=== PATIENT | female | born 1995 | race Caucasian/White ===

== ENCOUNTER 2016-04-21 05:27 | Emergency (ER) | payer BC ==
[2016-04-21] MEDS ORDERED: HYDROmorphONE/DILAUDID 1 MG/ML SYR IVP ONE (05:49)
[2016-04-21] MEDS ORDERED: NS 1,000 ML IV ONE (05:49)
[2016-04-21] MEDS ORDERED: ONDANSETRON 4 MG/2 ML VIAL IVP ONE (05:49)
--- NOTE | 2016-04-21 05:51 | EDPHY ---
H & P Stated Complaint: c/o L abd pain beginning approx 0100 am, recent dx of mono Time Seen by Provider: 04/21/16 05:43 HPI/ROS: CHIEF COMPLAINT: Abdominal pain HISTORY OF PRESENT ILLNESS: Patient is a 20-year-old female who presents to the emergency department complaining of left upper quadrant abdominal pain. She is diagnosed mononucleosis 2 weeks ago. She continues to have fatigue and is having increasing left upper quadrant pain. No trauma. Her sore throat runny nose and fever have resolved. No difficulty breathing, she denies risk of . No vaginal bleeding or discharge. No urinary symptoms. REVIEW OF SYSTEMS: Constitutional: denies: chills, fever, recent illness, recent injury EENTM: denies: blurred vision, double vision, nose congestion Respiratory: denies: cough, shortness of breath Cardiac: denies: chest pain, irregular heart rate, lightheadedness, palpitations Gastrointestinal/Abdominal: See HPI Genitourinary: denies: dysuria, frequency, hematuria, pain Musculoskeletal: denies: joint pain, muscle pain Skin: denies: lesions, rash, jaundice, bruising Neurological: denies: headache, numbness, paresthesia, tingling, dizziness, weakness Hematologic/Lymphatic: denies: blood clots, easy bleeding, easy bruising Immunologic/allergic: denies: HIV/AIDS, transplant EXAM: GENERAL: Well-appearing, well-nourished and in no acute distress. HEAD: Atraumatic, normocephalic. EYES: Pupils equal round and reactive to light, extraocular movements intact, sclera anicteric, conjunctiva are normal. ENT: TMs normal, nares patent, oropharynx clear without exudates. Moist mucous membranes. NECK: Normal range of motion, supple without lymphadenopathy or JVD. LUNGS: Breath sounds clear to auscultation bilaterally and equal. No wheezes rales or rhonchi. HEART: Regular rate and rhythm without murmurs, rubs or gallops. ABDOMEN: Splenomegaly, mild left upper quadrant tenderness. No rebound or guarding. BACK: No CVA tenderness, no spinal tenderness, step-offs or deformities EXTREMITIES: Normal range of motion, no pitting or edema. No clubbing or cyanosis. NEUROLOGICAL: Cranial nerves II through XII grossly intact. Normal speech, normal gait. 5/5 strength, normal movement in all extremities, normal sensation PSYCH: Normal mood, normal affect. SKIN: Warm, dry, normal turgor, no visible rashes or lesions. Source: Patient Exam Limitations: No limitations - Medical/Surgical History Hx Asthma: No Hx Chronic Respiratory Disease: No Hx Diabetes: No Hx Cardiac Disease: No Hx Renal Disease: No Hx Cirrhosis: No Hx Alcoholism: No Hx HIV/AIDS: No Hx Splenectomy or Spleen Trauma: No Other PMH: irregular menstruation, mild restrictive anorexia - Social History Smoking Status: Never smoked Alcohol Use: Sober Drug Use: None Constitutional: Initial Vital Signs Temperature (C) 36.8 C 04/21/16 05:32 Heart Rate 79 04/21/16 05:32 Respiratory Rate 16 04/21/16 05:32 Blood Pressure 112/64 04/21/16 05:32 O2 Sat (%) 98 04/21/16 05:32 O2 Delivery Mode Room Air Allergies/Adverse Reactions: No Known Allergies Allergy (Unverified 04/21/16 05:35) Home Medications: Medication Instructions Recorded Control 04/21/16 Hydrocodone/APAP 5/325 [[place] 1 - 2 tab PO Q4H PRN #10 tab 04/21/16 5/325 (RX)] Medical Decision Making ED Course/Re-evaluation: 6:35 a.m. we discussed the ultrasound results. The patient is reassured. She still has mild left upper quadrant pain. No right upper or right lower quadrant pain. We discussed options. I offered CT scan but she declined. We discussed 24 hour recheck which she would like to do. I will treat her with Vicodin for pain if necessary although she thinks she would prefer to stick with ibuprofen. We are awaiting urinalysis. Patient has trace blood in her urine. She did have some spotting yesterday for menses. She denies urinary symptoms. She is eager to go home. Differential Diagnosis: Partial list of the Differential diagnosis considered include but were not limited to; splenomegaly, mononucleosis, gastric ulcer disease and although unlikely based on the history and physical exam, I also considered biliary disease, appendicitis, diverticulitis, , ovarian torsion, urinary tract infection, kidney stone, , ectopic. I discussed these differential diagnoses and the plan with the patient as well as the usual and expected course. The patient understands that the diagnosis is provisional and that in medicine we are not always correct and that further workup is often warranted. Usual and customary warnings were given. All of the patient's questions were answered. The patient was instructed to return to the emergency department should the symptoms at all worsen or return, otherwise to followup with the physician as we discussed. - Data Points Laboratory Results: Laboratory Results 04/21/16 05:50 04/21/16 05:50 04/21/16 05:50 WBC 5.31 10^3/uL (3.80-9.50) RBC 4.34 10^6/uL (4.18-5.33) Hgb 14.1 g/dL (12.6-16.3) Hct 40.6 % (38.0-47.0) MCV 93.5 fL (81.5-99.8) MCH 32.5 pg (27.9-34.1) MCHC 34.7 g/dL (32.4-36.7) RDW 12.1 % (11.5-15.2) Plt Count 322 10^3/uL (150-400) MPV 9.4 fL (8.7-11.7) Neut % (Auto) 33.8 L % (39.3-74.2) Lymph % (Auto) 58.6 H % (15.0-45.0) [place] % (Auto) 6.2 % (4.5-13.0) Eos % (Auto) 0.6 % (0.6-7.6) Baso % (Auto) 0.6 % (0.3-1.7) Nucleat RBC Rel Count 0.0 % (0.0-0.2) Absolute Neuts (auto) 1.80 10^3/uL (1.70-6.50) Absolute Lymphs (auto) 3.11 H 10^3/uL (1.00-3.00) Absolute Monos (auto) 0.33 10^3/uL (0.30-0.80) Absolute Eos (auto) 0.03 10^3/uL (0.03-0.40) Absolute Basos (auto) 0.03 10^3/uL (0.02-0.10) Absolute Nucleated RBC 0.00 10^3/uL (0-0.01) Immature Gran % 0.2 % (0.0-1.1) Immature Gran # 0.01 10^3/uL (0.00-0.10) Sodium 139 mEq/L (134-144) Potassium 4.7 mEq/L (3.5-5.2) Chloride 103 mEq/L (97-110) Carbon Dioxide 24 mEq/l (22-31) Anion Gap 12 mEq/L (8-16) BUN 13 mg/dL (7-23) Creatinine 0.8 mg/dL (0.6-1.0) Estimated GFR > 60 Glucose 89 mg/dL (70-100) Calcium 9.5 mg/dL (8.5-10.4) Total Bilirubin 1.0 mg/dL (0.1-1.4) Conjugated Bilirubin 0.7 H mg/dL (0.0-0.5) Unconjugated Bilirubin 0.3 mg/dL (0.0-1.1) AST 35 IU/L (14-46) ALT 37 IU/L (9-52) Alkaline Phosphatase 102 IU/L (38-126) Total Protein 8.8 H g/dL (6.3-8.2) Albumin 4.4 g/dL (3.5-5.0) Lipase 155.0 IU/L (23-300) Beta HCG, Qual NEGATIVE Medications Given: Discontinued Medications Hydromorphone HCl (Dilaudid) 1 mg IVP EDNOW ONE Stop: 04/21/16 05:50 Last Admin: 04/21/16 06:06 Dose: 1 mg Sodium Chloride (Ns) 1,000 mls @ 0 mls/hr IV ONCE ONE PRN Reason: Wide Open Stop: 04/21/16 05:50 Last Admin: 04/21/16 06:07 Dose: 1,000 mls Ondansetron HCl (Zofran) 4 mg IVP EDNOW ONE Stop: 04/21/16 05:50 Last Admin: 04/21/16 06:07 Dose: 4 mg Departure - Departure Disposition: Home, Routine, Self-Care Clinical Impression: Abdominal pain Qualifiers: Abdominal location: left upper quadrant Qualifier Code: (R10.12) Left upper quadrant pain Condition: Fair Instructions: Acute Abdominal Pain (ED) Additional Instructions: Return in 24 hours if her symptoms have not improved. Referrals: [facility] [Outside] - As per Instructions ED,PHYSICIAN ONDUTY [Medical Doctor] - 1 day, if not improved Prescriptions: Hydrocodone/APAP 5/325 [[place] 5/325 (RX)] 1 - 2 tab PO Q4H PRN #10 tab PRN Reason: Pain, Moderate
[2016-04-21 06:03] LABS: % IMMATURE GRANULYOCYTES 0.2 % (0.0-1.1); ABSOLUTE IMMATURE GRANULOCYTES 0.01 10^3/uL (0.00-0.10); ADD DIFF? NO; ADD MORPH? NO; ADD SCAN? NO; ATYPICAL LYMPHOCYTE FLAG 0 (0-99); FRAGMENT RBC FLAG 0 (0-99); HEMATOCRIT 40.6 % (38.0-47.0); HEMOGLOBIN 14.1 g/dL (12.6-16.3); LEFT SHIFT FLG 0 (0-99); LIPEMIA HEMOLYSIS FLAG 90 (0-99); MEAN CELL HEMOGLOBIN 32.5 pg (27.9-34.1); MEAN CELL HEMOGLOBIN CONCENTR. 34.7 g/dL (32.4-36.7); MEAN CELL VOLUME 93.5 fL (81.5-99.8); MEAN PLATELET VOLUME 9.4 fL (8.7-11.7); PLATELET CLUMPS FLAG 30 (0-99); PLATELET COUNT 322 10^3/uL (150-400); RED BLOOD CELL COUNT 4.34 10^6/uL (4.18-5.33); RED CELL DISTRIBUTION WIDTH 12.1 % (11.5-15.2)
[2016-04-21 06:20] LABS: ALANINE AMINOTRANSFERASE 37 IU/L (9-52); ALBUMIN 4.4 g/dL (3.5-5.0); ALKALINE PHOSPHATASE 102 IU/L (38-126); ANION GAP 12 mEq/L (8-16); ASPARTATE AMINOTRANSFERASE 35 IU/L (14-46); BILIRUBIN-CONJUGATED 0.7 mg/dL (0.0-0.5); BILIRUBIN-UNCONJUGATED 0.3 mg/dL (0.0-1.1); CALCIUM 9.5 mg/dL (8.5-10.4); CARBON DIOXIDE 24 mEq/l (22-31); CHLORIDE 103 mEq/L (97-110); CREATININE 0.8 mg/dL (0.6-1.0); GLOMERULAR FILTRATION RATE > 60; GLUCOSE 89 mg/dL (70-100); POTASSIUM 4.7 mEq/L (3.5-5.2); SODIUM 139 mEq/L (134-144); TOTAL PROTEIN 8.8 g/dL (6.3-8.2)
[2016-04-21 07:01] LABS: COLOR PALE YELLOW; LEUKOCYTE ESTERASE,URINE NEGATIVE (NEGATIVE); NITRITE,URINE NEGATIVE (NEGATIVE)
[2016-04-21 07:05] LABS: BACTERIA 1+ /hpf (NONE SEEN)
[2016-04-21 07:06] LABS: MUCUS NONE SEEN /lpf (NONE-1+)
[2016-04-21 07:10] VITALS: BP 111/63; PULSE 49; RESP 12; TEMP 97.5; O2SAT 95
--- NOTE | 2016-04-21 15:50 | US ---
Limited abdominal ultrasound. April 21, 2016 History: Evaluate splenic size. Findings: The spleen is normal in size, position, and shape, measuring 11.3 x 3.4 cm in size. No zulma splenic fluid. No evidence of subcapsular hemorrhage. Limited evaluation of the right upper quadrant is negative for fluid in Morison's pouch. The gallblad martha is normal on survey imaging Impression: Normal size of the spleen. Results called to Dr. Eliud Elaine at 6:30 AM. The study was performed as an emergency on-call case. The final interpretation is concordant with the original communication. .
== END 2016-04-21 07:10 | disposition home or self-care (01) ==
DX: R10.12 Left upper quadrant pain (principal)
CPT/HCPCS: 96374; J1170; J2405

== ENCOUNTER → 2017-05-20 | Outpatient (CLI) | payer BC | LOC: FIMAGING 14:19 | PROVIDERS: ATTEND Physician Assistant | DX: R10.9 Unspecified abdominal pain (principal) ==

== ENCOUNTER 2018-01-27 13:03 | Emergency (ER) | payer BC ==
[2018-01-27] MEDS ORDERED: NS 1,000 ML IV ONE (13:59)
--- NOTE | 2018-01-27 14:01 | EDPHY ---
H & P Stated Complaint: pre-syncopy Time Seen by Provider: 01/27/18 13:56 HPI/ROS: CHIEF COMPLAINT: Syncope HISTORY OF PRESENT ILLNESS: Patient is a 22-year-old female who rode her bike to the coffee shop and then was standing still in line when she became lightheaded and had tunnel vision the felt hot and sweaty. She went and sat down at the table and laid her head on the table. She did not fall. She thinks she may have lost consciousness for a second or 2. She then went to the bathroom and noticed that she looked pale. She is currently menstruating which is normal timing. She denies . She does have a history of IBS. She feels thirsty. She denies chest pain or dyspnea. No recent fevers or illness. She presented initially to urgent care recommended she come here. She does have a very mild headache as well but states that it is not concerning to her. It is not the worst headache of her life. It presented after her syncopal symptoms not before . it is now resolving. No focal weakness or deficits. Severity: Moderate Modifying factors: Improving with time REVIEW OF SYSTEMS: Constitutional: denies: chills, fever, recent illness, recent injury EENTM: denies: blurred vision, double vision, nose congestion Respiratory: denies: cough, shortness of breath Cardiac: denies: chest pain, irregular heart rate, lightheadedness, palpitations Gastrointestinal/Abdominal: denies: abdominal pain, diarrhea, nausea, vomiting, blood streaked stools Genitourinary: denies: dysuria, frequency, hematuria, pain Musculoskeletal: denies: joint pain, muscle pain Skin: denies: lesions, rash, jaundice, bruising Neurological: denies: headache, numbness, paresthesia, tingling, dizziness, weakness Hematologic/Lymphatic: denies: blood clots, easy bleeding, easy bruising Immunologic/allergic: denies: HIV/AIDS, transplant 10 systems reviewed and negative except as noted EXAM: GENERAL: Well-appearing, well-nourished and in no acute distress. HEAD: Atraumatic, normocephalic. EYES: Pupils equal round and reactive to light, extraocular movements intact, sclera anicteric, conjunctiva are normal. ENT: TMs normal, nares patent, oropharynx clear without exudates. Moist mucous membranes. NECK: Normal range of motion, supple without lymphadenopathy or JVD. LUNGS: Breath sounds clear to auscultation bilaterally and equal. No wheezes rales or rhonchi. HEART: Regular rate and rhythm without murmurs, rubs or gallops. ABDOMEN: Soft, nontender, normoactive bowel sounds. No guarding, no rebound. No masses appreciated. BACK: No CVA tenderness, no spinal tenderness, step-offs or deformities EXTREMITIES: Normal range of motion, no pitting or edema. No clubbing or cyanosis. NEUROLOGICAL: Cranial nerves II through XII grossly intact. Normal speech, normal gait. 5/5 strength, normal movement in all extremities, normal sensation , normal reflexes PSYCH: Normal mood, normal affect. SKIN: Warm, dry, normal turgor, no visible rashes or lesions. Source: Patient Exam Limitations: No limitations - Personal History LMP (Females 10-55): Now - Medical/Surgical History Hx Asthma: No Hx Chronic Respiratory Disease: No Hx Diabetes: No Hx Cardiac Disease: No Hx Renal Disease: No Hx Cirrhosis: No Hx Alcoholism: No Hx HIV/AIDS: No Hx Splenectomy or Spleen Trauma: No Other PMH: irregular menstruation, IBS - Family History Significant Family History: No pertinent family hx - Social History Smoking Status: Never smoked Alcohol Use: Sober Drug Use: None Constitutional: Initial Vital Signs Temperature (C) 36.7 C 01/27/18 13:10 Heart Rate 81 01/27/18 13:10 Respiratory Rate 16 01/27/18 13:10 Blood Pressure 115/62 01/27/18 13:10 O2 Sat (%) 97 01/27/18 13:10 O2 Delivery Mode Room Air Allergies/Adverse Reactions: No Known Allergies Allergy (Verified 01/27/18 13:09) Home Medications: Medication Instructions Recorded Control 04/21/16 Medical Decision Making - Diagnostics EKG Interpretation: An EKG obtained and was read and documented in trace view. Please see trace view for full reading and report. Sinus rhythm, no acute ischemic changes ED Course/Re-evaluation: 3:00 p.m. patient's lab work is reassuring. She is asymptomatic. She is ambulating around the department. No arrhythmias seen on monitor. We discussed follow-up with cardiology if necessary. We discussed indications for returning to the ER. Differential Diagnosis: Partial list of the Differential diagnosis considered include but were not limited to; vasovagal syncope, arrhythmia, dehydration and although unlikely based on the history and physical exam, I also considered anemia, electrolyte abnormality. - Data Points Laboratory Results: Laboratory Results 01/27/18 14:12 01/27/18 14:12 01/27/18 01/27/18 01/27/18 14:12 14:12 14:12 WBC 6.11 10^3/uL 10^3/uL (3.80-9.50) RBC 4.05 10^6/uL L 10^6/uL (4.18-5.33) Hgb 13.0 g/dL g/dL (12.6-16.3) Hct 38.9 % % (38.0-47.0) MCV 96.0 fL fL (81.5-99.8) MCH 32.1 pg pg (27.9-34.1) MCHC 33.4 g/dL g/dL (32.4-36.7) RDW 12.0 % % (11.5-15.2) Plt Count 290 10^3/uL 10^3/uL (150-400) MPV 9.3 fL fL (8.7-11.7) Neut % (Auto) 68.5 % % (39.3-74.2) Lymph % (Auto) 25.5 % % (15.0-45.0) [place] % (Auto) 4.9 % % (4.5-13.0) Eos % (Auto) 0.5 % L % (0.6-7.6) Baso % (Auto) 0.3 % % (0.3-1.7) Nucleat RBC Rel Count 0.0 % % (0.0-0.2) Absolute Neuts (auto) 4.18 10^3/uL 10^3/uL (1.70-6.50) Absolute Lymphs (auto) 1.56 10^3/uL 10^3/uL (1.00-3.00) Absolute Monos (auto) 0.30 10^3/uL 10^3/uL (0.30-0.80) Absolute Eos (auto) 0.03 10^3/uL 10^3/uL (0.03-0.40) Absolute Basos (auto) 0.02 10^3/uL 10^3/uL (0.02-0.10) Absolute Nucleated RBC 0.00 10^3/uL 10^3/uL (0-0.01) Immature Gran % 0.3 % % (0.0-1.1) Immature Gran # 0.02 10^3/uL 10^3/uL (0.00-0.10) Sodium 139 mEq/L mEq/L (135-145) Potassium 4.6 mEq/L mEq/L (3.3-5.0) Chloride 107 mEq/L mEq/L (97-110) Carbon Dioxide 23 mEq/l mEq/l (22-31) Anion Gap 9 mEq/L mEq/L (6-14) BUN 11 mg/dL mg/dL (7-23) Creatinine 0.7 mg/dL mg/dL (0.6-1.0) Estimated GFR > 60 Glucose 101 mg/dL H mg/dL (70-100) Calcium 9.2 mg/dL mg/dL (8.5-10.4) Beta HCG, Qual NEGATIVE Medications Given: Discontinued Medications Sodium Chloride (Ns) 1,000 mls @ 0 mls/hr IV EDNOW ONE; Wide Open PRN Reason: Protocol Stop: 01/27/18 14:00 Last Admin: 01/27/18 14:15 Dose: 1,000 mls Departure - Departure Disposition: Home, Routine, Self-Care Clinical Impression: Syncope Qualifiers: Syncope type: vasovagal syncope Qualified Code(s): R55 - Syncope and collapse Condition: Fair Instructions: Syncope (ED) Referrals: [facility] [Other] - As per Instructions
--- NOTE | 2018-01-27 14:14 | CPEKG ---
Test Reason : OPEN Blood Pressure : / mmHG Vent. Rate : 051 BPM Atrial Rate : 050 BPM P-R Int : 154 ms QRS Dur : 065 ms QT Int : 467 ms P-R-T Axes : 017 055 046 degrees QTc Int : 431 ms Sinus rhythm Confirmed by Eliud Elaine ([id number]) on 01/27/2018 2:13:39 PM Referred By: Confirmed By:Eliud Elaine
[2018-01-27 14:26] LABS: PLATELET COUNT 290 10^3/uL (150-400)
[2018-01-27 14:43] VITALS: BP 114/72
== END 2018-01-27 15:14 | disposition home or self-care (01) ==
DX: R55 Syncope and collapse (principal); E86.9 Volume depletion, unspecified